=== PATIENT | female | born 1985 | race Caucasian/White ===

== ENCOUNTER → 2016-11-23 | Outpatient (CLI) | payer BC ==
[2016-11-23 11:52] LABS: URINE APPEARANCE CLEAR (CLEAR); URINE BILIRUBIN NEG (NEG); URINE COLOR YELLOW; URINE NITRITE NEG (NEG); URINE PH 6.5 (4.5-7.5); URINE SPECIFIC GRAVITY 1.005 (1.000-1.030); UROBILINOGEN NEG (NEG)
[2016-11-23 12:00] LABS: MANUAL MICROSCOPIC REQUIRED? NO; REVIEW REQ? NO
== END | disposition home or self-care (01) ==
LOC: C.LABSPEC 11:21
PROVIDERS: ATTEND Obstetrics & Gynecology
DX: Z34.90 Encounter for supervision of normal pregnancy, unspecified, unspecified trimester (principal)

== ENCOUNTER → 2016-11-29 | Outpatient (CLI) | payer BC | END | disposition home or self-care (01) | LOC: C.PAPS 10:04 | PROVIDERS: ATTEND Obstetrics & Gynecology | DX: Z34.91 Encounter for supervision of normal pregnancy, unspecified, first trimester (principal) ==

== ENCOUNTER → 2016-11-29 | Outpatient (CLI) | payer BC ==
[2016-11-29 16:38] LABS: BASO % 0.2 %; BASO ABS # 0.02 K/uL (0-0.2); COMPLETE YES; EOS % 1.4 %; HEMATOCRIT 40.4 % (37-47); IG% 0.4 %; LYMPH % 16.7 %; LYMPH ABS # 1.85 K/uL (1.2-3.4); MEAN CELL VOLUME 86.5 fL (80-100); MEAN CORPUSCULAR HGB CONC 34.7 g/dl (32-36); MEAN PLATELET VOLUME 9.7 fL (7.4-10.4); MONO % 6.3 %; PLATELET COUNT 271 K/uL (130-400); RED BLOOD COUNT 4.67 M/uL (4.2-5.4); WHITE BLOOD COUNT 11.07 K/uL (4.8-10.8)
== END | disposition home or self-care (01) ==
LOC: C.LAB1850 15:46
PROVIDERS: ATTEND Obstetrics & Gynecology
DX: Z34.90 Encounter for supervision of normal pregnancy, unspecified, unspecified trimester (principal)

== ENCOUNTER → 2016-11-29 | Outpatient (CLI) | payer BC ==
[2016-12-03 08:40] LABS: CHLAMYDIA TRACH RNA*** NOT DETECTED (NOT DETECTED); GC (NEIS GONORRHOEAE)RNA** NOT DETECTED (NOT DETECTED)
== END | disposition home or self-care (01) ==
LOC: C.LABSPEC 17:52
PROVIDERS: ATTEND Obstetrics & Gynecology
DX: Z34.90 Encounter for supervision of normal pregnancy, unspecified, unspecified trimester (principal)

== ENCOUNTER → 2017-04-24 | Outpatient (CLI) | payer BC ==
[2017-04-24 17:12] LABS: HEMATOCRIT 35.9 % (37-47)
[2017-04-24 17:45] LABS: GTGD 50 Grams
[2017-04-24 18:37] LABS: URINE APPEARANCE CLEAR (CLEAR); URINE BILIRUBIN NEG (NEG); URINE COLOR YELLOW; URINE EPITHELIAL CELL AUTO 0-5 /lpf (0-5); URINE NITRITE NEG (NEG); URINE PH 6.5 (4.5-7.5); UROBILINOGEN NEG (NEG)
[2017-04-24 18:38] LABS: MANUAL MICROSCOPIC REQUIRED? NO; REVIEW REQ? NO
== END | disposition home or self-care (01) ==
LOC: C.LAB1850 15:43
PROVIDERS: ATTEND Obstetrics & Gynecology
DX: Z34.83 Encounter for supervision of other normal pregnancy, third trimester (principal)

== ENCOUNTER → 2017-06-18 | Outpatient (CLI) | payer BC | END | disposition home or self-care (01) | LOC: C.LABSPEC 13:46 | PROVIDERS: ATTEND Obstetrics & Gynecology | DX: Z34.83 Encounter for supervision of other normal pregnancy, third trimester (principal) ==

== ENCOUNTER 2017-07-03 10:37 | Inpatient (IN) | payer BC ==
[~2017-07-03] VITALS: Ht 160 cm; Wt 80.0 kg
[2017-07-03] MEDS ORDERED: LACTATED RINGER'S 1000ML 1,000 ML IV SCH (11:11)
[2017-07-03] MEDS ORDERED: LABETALOL HCL IV 5 MG/ML 20ML IV STA (11:11)
[2017-07-03] MEDS ORDERED: LACTATED RINGER'S 1000ML 1,000 ML IV PRN (11:11)
[2017-07-03] MEDS ORDERED: NO HOME MEDS (11:37)
[2017-07-03 11:40] VITALS: Ht 160 cm; Wt 80.0 kg
[2017-07-03] MEDS ORDERED: LACTATED RINGER'S 1000ML 500 ML IV PRN (11:41)
[2017-07-03 11:43] LABS: HEMATOCRIT 36.5 % (37-47); MEAN CELL VOLUME 86.5 fL (80-100); MEAN CORPUSCULAR HEMOGLOBIN 29.6 pg (25-34); MEAN CORPUSCULAR HGB CONC 34.2 g/dl (32-36); MEAN PLATELET VOLUME 10.1 fL (7.4-10.4); PLATELET COUNT 252 K/uL (130-400); RED BLOOD COUNT 4.22 M/uL (4.2-5.4); WHITE BLOOD COUNT 11.02 K/uL (4.8-10.8)
[2017-07-03] MEDS ORDERED: OXYTOCIN 30 UNITS/500ML NSS IV PRN ×2 (11:45→15:30)
[2017-07-03] MEDS ORDERED: PENICILLIN G POTASSIUM IV 6 MU in DEXTROSE 5% 250ML 250 ML IV ONE (11:45)
[2017-07-03 11:59] LABS: BUN/CREATININE RATIO 10.4 (10-20); CALCIUM 8.8 mg/dl (8.5-10.1); CREATININE 0.64 mg/dl (0.60-1.20); POTASSIUM 3.6 mmol/L (3.5-5.1)
[2017-07-03] MEDS ORDERED: PENICILLIN G POTASSIUM IV 3 MU in DEXTROSE 5% 100ML 100 ML IV PRN (12:00)
[2017-07-03 12:02] LABS: ALB/GLOB RATIO 0.6 (0.9-2)
[2017-07-03 14:11] LABS: CREATININE, URINE 95.8 mg/dl; URINE PROTIEN/CREAT RATIO 0.2 (0-0.2); URINE TOTAL PROTEIN 17.4 mg/dl (0-11.9)
[2017-07-03] MEDS ORDERED: IBUPROFEN 600 MG TAB ONE (15:28)
[2017-07-03] MEDS ORDERED: ACETAMINOPHEN 325 MG TAB PO PRN (15:30)
[2017-07-03] MEDS ORDERED: HYDROCORTISONE ACETATE 25 MG SUPP PR PRN (15:30)
[2017-07-03] MEDS ORDERED: LANOLIN OINT EXT PRN ×2 (15:30)
[2017-07-03] MEDS ORDERED: DIPHTHERIA/TETANUS/PERTUSSIS 0.5 ML SYR/VIAL IM. ONE (15:30)
[2017-07-03] MEDS ORDERED: OXYCODONE/ACETAMINOPHEN 5-325 TAB PO PRN (15:30)
[2017-07-03] MEDS ORDERED: SUPERCREAM 0.870 % 15GM JAR EXT PRN (15:30)
[2017-07-03] MEDS: IBUPROFEN 600 MG TAB PO PRN ×2 (15:31→20:25)
--- NOTE | 2017-07-03 15:51 | Medical Student: [facility] ---
Medical Student Delivery Note Operative Date: 07/03/2017 Preoperative Diagnosis: Intrauterine . Chronic Hypertension with severe features. GBS Positive Post-operative Diagnosis: Intrauterine . Chronic Hypertension with severe features. GBS Positive Procedures performed: Administered Penicillin for GBS Positive, Oxytocin Induction, AROM, , Left Labial laceration repair Physician: Dr. Pascual [employer] Health Counselor: Christopher Christie MS3 Anesthesia: None Estimated Blood Loss: 400mL Lori Lechuga is a 31 year old [id number] at 38-5/7 weeks gestational age with an estimated delivery date of 07/12/2017 who presents for chronic hypertension and induction of labor. She was sent to the L&D unit from the OB clinic due to a blood pressure reading of 160/102. Emmadenied an epidural, was induced with oxytocin at 1145 and AROM occurred at 1430 with clear fluid with bloody show. Shortly thereafter Ms. Lechuga became fully effaced and dilated, and began pushing. After strong effort and pushes from the mother, At 1504 a viable female infant with ELIDIA presentation was born. The baby's head was delivered, followed by the anterior and posterior shoulders, and with a final push the rest of the infant was delivered without difficulty. The baby was placed on the mother's chest for drying/cleaning, and the baby's mouth and nares were suctioned. Cord was doubly clamped and cut by father of baby, and cord blood was obtained. A placenta with a 3 vessel cord was delivered with uterine massage and gentle downward traction. Hemostasis was achieved with Oxytocin and uterine massage. EBL: 400mL. Mother's cervix, anterior vaginal wall, and rectum were examined by Dr. Pascual and were intact. Upon inspection by Dr. Pascual, 2 small labial skin lacerations were observed on both the left and right sides. Only the laceration on the left was determined severe enough to need repair. 1% lidocaine was injected at the laceration site for local anesthesia, and it was repaired with 3 interrupted stitches. Sponge and needle count correct. Apgars for baby were 8 and 9 at 1 and 5 minutes respectively. Mother and baby are doing well and recovering.
--- NOTE | 2017-07-03 16:02 | DELIVERY SUMMARY ---
DATE OF OPERATION: 07/03/2017 DATE OF DELIVERY: 07/03/2017. PREOPERATIVE DIAGNOSES: 1. Intrauterine at 38 weeks. 2. Chronic hypertensive affecting . 3. Elevated blood pressures. POSTOPERATIVE DIAGNOSES: Same PLUS group B strep positive status. PROCEDURES: 1. Penicillin for group B strep status. 2. Pitocin. 3. Amniotomy. 4. Normal spontaneous vaginal delivery. 5. Left labial laceration with repair. SURGEON: Dr. Pascual. ANESTHESIA: Epidural, local infiltration of lidocaine to the labia. ESTIMATED BLOOD LOSS: 400 mL. PROCEDURE: The patient presented labor and delivery from the office at 38+ weeks with a blood pressure of 160/102. Initially the patient's pressure was 160/133. She then got an IV in preparation for giving her antihypertensive medications and that dropped her blood pressure to 120/76 and for the rest of her evaluation her blood pressure were 130s-140s/80s-90s. She had no proteinuria. She had no signs or symptoms of preeclampsia. Given this elevated blood pressure recently and her advanced cervical dilation at 4 cm dilated and gestational age decision was made to proceed with induction. She was agreeable. She was given penicillin for group B strep prophylaxis. She was praveen irregularly at the time of admission and Pitocin augmentation was initiated. She progressed and felt pushy, was found to be 9 cm dilated. It was an hour before her next dose of penicillin. I offered to try to wait versus rupturing bag of water and proceeding with delivery. She desired to rupture bag of water and proceed with delivery. AROM was performed for clear fluid. Over the next contraction the patient felt pushy, she was complete complete and +2-3 station and she pushed with excellent effort to deliver a viable female infant in ELIDIA presentation. There was no nuchal cord and the rest of the infant was immediately delivered via maternal effort. The infant was placed on the maternal abdomen where it was dried and attended. The nose and mouth were bulb suctioned. The cord was clamped and cut at 1 minute of life. Cord blood was obtained. The placenta was delivered spontaneous and intact with a 3-vessel cord. The cervix, sulci, rectum and perineum were examined and found to be intact. Hemostasis with dilute Pitocin and final massage. A left labial laceration was infiltrated with local lidocaine and several interrupted sutures of 4-0 Vicryl were used to reapproximate the edges. Mother and baby tolerated the procedure well. Apgars 8 and 9. I attest to the content of the Intraoperative Record and any orders documented therein. Any exception s are noted below.
[2017-07-03 17:45] VITALS: BP 133/83; PULSE 83; TEMP 36.8
[2017-07-03] MEDS: BENZOCAINE 20% AER SPR 82.5 GM CAN EXT PRN (18:40)
[2017-07-03 19:10] VITALS: BP 137/92; PULSE 87; TEMP 36.6
[2017-07-03] MEDS ORDERED: CALCIUM CARBONATE 500 MG CHEWABLE PO PRN (20:15)
[2017-07-03] MEDS: DOCUSATE SODIUM 100 MG CAP PO SCH (20:24)
[2017-07-03 20:25] VITALS: BP 133/88; PULSE 80
[2017-07-03 21:25] VITALS: BP 141/92; PULSE 88
[2017-07-04] MEDS: IBUPROFEN 600 MG TAB PO PRN ×5 (00:20→20:08)
[2017-07-04 00:30] VITALS: BP 149/94; PULSE 63; PULSE 78; TEMP 36.8; O2SAT 98
[2017-07-04 04:10] VITALS: BP 147/94; PULSE 76; TEMP 36.6; O2SAT 99
--- NOTE | 2017-07-04 06:43 | OB/GYN Progress Note ---
COLOR SEPARATION PHOTOGRAPHER Progress Note Date of Service Jul 04, 2017. Subjective conversation w/ patient, physical exam, chart review, lab review Ambulation: ambulating normally Voiding: no voiding problems Diet Tolerance: Regular Diet Lochia: Small Feeding Type: Breast Feeding Pain: mild pain Review of Systems Constitutional: No fever, No chills Respiratory: No shortness of breath Cardiac: No chest pain Abdomen: No nausea, No vomiting Female : No dysuria Objective Vital Signs Date Time Temp Pulse Resp B/P (MAP) Pulse Ox O2 Delivery O2 Flow Rate FiO2 07/04/17 04:10 36.6 76 18 147/94 (111) 99 Room Air 07/04/17 00:30 98 Room Air 07/04/17 00:30 36.8 78 16 149/94 (112) 98 Room Air 07/03/17 21:25 88 141/92 (108) 07/03/17 20:25 80 133/88 (103) 07/03/17 19:10 36.6 87 18 137/92 (107) Room Air 07/03/17 17:45 36.8 83 18 133/83 (100) Room Air 07/03/17 17:45 Room Air Physical Exam General Appearance: WELL-APPEARING Respiratory/Chest: lungs clear, normal breath sounds Cardiovascular: regular rate, rhythm Abdomen: normal bowel sounds, non tender, soft Fundus: Firm, Relation to Umbilicus (2 FB below) Extremities: non-tender, no pedal edema Laboratory Results Last 24 Hours Test 07/03/17 10:45 07/03/17 11:32 07/04/17 06:26 Urine Random Creatinine 95.8 mg/dl Urine Random Total Protein 17.4 mg/dl Urine Protein/Creatinine Ratio 0.2 White Blood Count 11.02 K/uL Red Blood Count 4.22 M/uL Hemoglobin 12.5 g/dL Hematocrit 36.5 % Mean Corpuscular Volume 86.5 fL Mean Corpuscular Hemoglobin 29.6 pg Mean Corpuscular Hemoglobin Concent 34.2 g/dl RDW Standard Deviation 46.4 fL RDW Coefficient of Variation 14.7 % Platelet Count 252 K/uL Mean Platelet Volume 10.1 fL Sodium Level 137 mmol/L Potassium Level 3.6 mmol/L Chloride Level 105 mmol/L Carbon Dioxide Level 23 mmol/L Anion Gap 9.0 mmol/L Blood Urea Nitrogen 7 mg/dl Creatinine 0.64 mg/dl Est Creatinine Clear Calc Drug Dose 128.7 ml/min Estimated GFR () 138.8 Estimated GFR (Non- 119.7 BUN/Creatinine Ratio 10.4 Random Glucose 83 mg/dl Calcium Level 8.8 mg/dl Total Bilirubin 0.5 mg/dl Aspartate Amino Transf (AST/SGOT) 11 U/L Alanine Aminotransferase (ALT/SGPT) 11 U/L Alkaline Phosphatase 121 U/L Total Protein 7.4 gm/dl Albumin 2.9 gm/dl Globulin 4.5 gm/dl Albumin/Globulin Ratio 0.6 Assessment and Plan Post- Day Number: 1 Continue Routine Care: A/P: This is a 31 y/o female, , s/p [normal vaginal delivery] day 1 complicated by hypertension. She is ambulating and clinically stable. Plan: - Vitals signs are reviewed and WNL (Tmax 36.8) - Last Hgb is 12.5. this AM is pending - Blood type A+, GBS pos, Rubella Immune - Routine care - Encourage ambulation, monitor and control pain with medication as needed, continue with regular diet as tolerated and monitor lochia - Stool softeners and sitz bath recommended - Encourage breast feeding and educate about breast feeding Resident Physician Supervision Note: I interviewed and examined the patient. Discussed with Dr. Dr. Guadarrama and agree with findings and plan as documented in the note. Any exceptions or clarifications are listed here: bps have been better since delivery , diastolics in the 90s, will continue to monitor closely to determine need for antiypertensive. Documented By: Alexandrea Pascual Resident Involvement: Resident Care Provided Care Provided: OB Delivery
[2017-07-04 07:32] LABS: HEMATOCRIT 34.5 % (37-47)
[2017-07-04 07:45] VITALS: BP 136/94; PULSE 83; TEMP 36.7; O2SAT 98
--- NOTE | 2017-07-04 08:02 | Medical Student: [facility] ---
Med Student CONTACT LENS FLASHING PUNCHER Progress Nt Date of Service Jul 04, 2017. Subjective conversation w/ patient Ambulation: ambulating normally Voiding: no voiding problems Passing Gas: Yes Diet Tolerance: Regular Diet Lochia: Small Feeding Type: Breast Feeding Pain: mild, controlled with Motrin Review of Systems Constitutional: No fever, No chills Respiratory: No cough, No shortness of breath Cardiac: No chest pain, No palpitations Abdomen: No pain, No nausea, No vomiting Female : No dysuria denied headache, dizziness, and changes in vision Objective Vital Signs Date Time Temp Pulse Resp B/P (MAP) Pulse Ox O2 Delivery O2 Flow Rate FiO2 07/04/17 04:10 36.6 76 18 147/94 (111) 99 Room Air 07/04/17 00:30 98 Room Air 07/04/17 00:30 36.8 78 16 149/94 (112) 98 Room Air 07/03/17 21:25 88 141/92 (108) 07/03/17 20:25 80 133/88 (103) 07/03/17 19:10 36.6 87 18 137/92 (107) Room Air 07/03/17 17:45 36.8 83 18 133/83 (100) Room Air 07/03/17 17:45 Room Air Physical Exam General Appearance: WELL-APPEARING, WD/WN, NO APPARENT DISTRESS Respiratory/Chest: lungs clear, normal breath sounds Cardiovascular: regular rate, rhythm, no murmur Abdomen: non tender, soft Fundus: Firm, Non-Tender, Relation to Umbilicus (2 finger breadths below umbilicus) Extremities: non-tender, no calf tenderness, + pedal edema (1+) Blood Type: A positive Rubella: Immune BS: positive Predelivery: Hgb 12.5 Hct 36.5 Postdelivery: Hgb 11.4 Hct 34.5 Laboratory Results Last 24 Hours Test 07/03/17 10:45 07/03/17 11:32 07/04/17 06:26 Urine Random Creatinine 95.8 mg/dl Urine Random Total Protein 17.4 mg/dl Urine Protein/Creatinine Ratio 0.2 White Blood Count 11.02 K/uL Red Blood Count 4.22 M/uL Hemoglobin 12.5 g/dL 11.4 g/dL Hematocrit 36.5 % 34.5 % Mean Corpuscular Volume 86.5 fL Mean Corpuscular Hemoglobin 29.6 pg Mean Corpuscular Hemoglobin Concent 34.2 g/dl RDW Standard Deviation 46.4 fL RDW Coefficient of Variation 14.7 % Platelet Count 252 K/uL Mean Platelet Volume 10.1 fL Sodium Level 137 mmol/L Potassium Level 3.6 mmol/L Chloride Level 105 mmol/L Carbon Dioxide Level 23 mmol/L Anion Gap 9.0 mmol/L Blood Urea Nitrogen 7 mg/dl Creatinine 0.64 mg/dl Est Creatinine Clear Calc Drug Dose 128.7 ml/min Estimated GFR () 138.8 Estimated GFR (Non- 119.7 BUN/Creatinine Ratio 10.4 Random Glucose 83 mg/dl Calcium Level 8.8 mg/dl Total Bilirubin 0.5 mg/dl Aspartate Amino Transf (AST/SGOT) 11 U/L Alanine Aminotransferase (ALT/SGPT) 11 U/L Alkaline Phosphatase 121 U/L Total Protein 7.4 gm/dl Albumin 2.9 gm/dl Globulin 4.5 gm/dl Albumin/Globulin Ratio 0.6 Medications Current Inpatient Medications Medications (Trade) Dose Ordered Sig/Alissa Route Start Time Stop Time Status Last Admin Dose Admin Oxytocin (Pitocin IV) 30 units UD PRN IV 07/03/17 15:30 08/02/17 15:29 Benzocaine (Dermoplast Aero Spr) 1 appln PRN PRN EXT 07/03/17 15:30 08/02/17 15:29 07/03/17 18:40 1 APPLN Cocaine HCl (Supercream 0.870% Cr) BID PRN EXT 07/03/17 15:30 07/17/17 15:29 07/03/17 18:40 15 GM Hydrocortisone Acetate (Anusol Hc Supp) 25 mg BID PRN [place] 07/03/17 15:30 08/02/17 15:29 Lanolin (Lanolin Oint) PRN PRN EXT 07/03/17 15:30 08/02/17 15:29 Prenat Multivit/ Green Prize Packer/Iron/Folic Ac ( Vitamin Tab) 1 tab DAILY PO 07/04/17 08:00 08/03/17 07:59 Ibuprofen (Motrin Tab) 600 mg Q4H PRN PO 07/03/17 15:30 08/02/17 15:29 07/04/17 04:10 600 MG Acetaminophen (Tylenol Tab) 650 mg Q6H PRN PO 07/03/17 15:30 08/02/17 15:29 Oxycodone/ Acetaminophen (Percocet 5-325mg Tab) 1 tab Q4H PRN PO 07/03/17 15:30 07/17/17 15:29 Docusate Sodium (coLACE CAP) 100 mg BID PO 07/03/17 20:00 08/02/17 19:59 07/03/17 20:24 100 MG Calcium Carbonate (Tums Chew Tab) 500 mg Q4 PRN PO 07/03/17 20:15 08/02/17 20:14 07/03/17 20:24 500 MG Assessment and Plan Post- Day Number: 1 Continue Routine Care: Assessment: 31 year old Female PPD#1 following induction of labor due to elevated blood pressure, and a normal vaginal delivery. She is asymptomatic of preeclampsia, although her blood pressures have ranged from 133/83-149/94. She is GBS positive and received 1 dose of Penicillin G. She appears clinically stable. Plan: Monitor blood pressures and treat if elevated to 160/100. Continue to monitor bleeding Pain controlled with Motrin Encourage and ambulation Continue routine care
[2017-07-04] MEDS: PRENATAL VITAMIN TAB PO SCH (08:27)
[2017-07-04] MEDS: DOCUSATE SODIUM 100 MG CAP PO SCH ×2 (08:27→20:08)
[2017-07-04 11:00] VITALS: BP 143/90; PULSE 75; TEMP 36.7; O2SAT 97
[2017-07-04 15:25] VITALS: BP 129/90; PULSE 74; TEMP 36.6; O2SAT 99
[2017-07-04 23:15] VITALS: BP 137/91; PULSE 74; TEMP 36.5; O2SAT 98
[2017-07-05 03:40] VITALS: BP 138/99; PULSE 84; TEMP 36.6; O2SAT 97
[2017-07-05] MEDS: IBUPROFEN 600 MG TAB PO PRN ×3 (03:46→13:59)
--- NOTE | 2017-07-05 06:03 | Discharge Instructions ---
Discharge Instructions Date of Service Jul 05, 2017. Admission Reason for Admission: Elevated Blood Pressure Discharge Discharge Diagnosis / Problem: after vaginal delivery Discharge Goals Goal(s): Routine recovery after delivery Medications Continue Dispensed Medications: supercream, dermaplast, tucks, lansinoh Activity Recommendations Activity Limitations: per Instructions/Follow-up section . Instructions / Follow-Up Instructions / Follow-Up ACTIVITY RECOMMENDATIONS: * Gradual return to full activity over the next 2-3 weeks. * No lifting - nothing heavier than baby over the next 2-3 weeks. * Do not engage in vigorous exercise, sexual activity or sports until cleared by your physician. * Do not drive or operate any motorized equipment until cleared by your physician. * You may shower/bathe daily. MEDICATIONS: For discomfort or pain, you may use Acetaminophen (Tylenol), Ibuprofen (Advil), or Naproxen (Aleve) following the package directions. For constipation you may use Colace following the package directions. BREAST CARE: If you are not breast feeding: * Wear a supportive bra 24 hours a day for one to two weeks. * Avoid stimulating your breasts and nipples as much as possible during the first few weeks after delivery. * When taking a shower, have the warm water hit your back, not breasts. * When your breasts feel full, apply ice packs. Usually three to four times a day helps ease the discomfort. * Take a mild pain medication (Tylenol / Motrin) when you are uncomfortable. If breast feeding: * Use breast milk to lubricate nipples. Lansinoh cream may be used for sore nipples. You do not need to remove cream prior to breast feeding. If using a different brand of cream, check the label for directions regarding removal of cream prior to nursing. * Wear a supportive bra. * If having problems with breasts or breast feeding, call a [facility] ascp consultant or your health care provider. EPISIOTOMY CARE: After delivery, if you have an episiotomy (stitches), the following steps will ease discomfort and aid healing. * For the first 24 hours after delivery, place ice packs next to your episiotomy to help reduce swelling. * After the first 24 hour-period, sitz baths, either portable or in the tub, are suggested. A shower with a shower arm sprayed over the episiotomy may be comforting. * Ally care should be done after each voiding and bowel movement. Squirt warm water from a plastic bottle over the perineum (region of the body between the anus and urinary opening) and pat dry. * Use Dermoplast to ease discomfort. Shake container. Ottosen directly over the episiotomy. Place a Tucks on a clean sanitary pad next to your episiotomy. SPECIAL CARE INSTRUCTIONS: When you are discharged from the hospital, it is important for you to follow the instructions listed below: * During the first week at home, you should be able to care for yourself and your baby. In addition, the usual light household activities are encouraged. * Limit your activities to the way you feel. Do not try to clean the house or move furniture. Be sensible. * If you actively engage in sports and have done so up until the time of your delivery, you may resume these activities as soon as you feel able. This may take up to one month or even longer. Use good judgment. * Continue to take your vitamins for at least six weeks after the of your baby. * Your diet need not be limited unless you were on a special diet before your delivery. Breast-feeding mothers need around 2500 calories per day and at least 64-80 ounces of fluid per day (8 to 10 glasses). * You should eat foods from the four major food groups. Crash diets or fad diets are to be avoided. Eating lean meats, fresh fruits and vegetables, low-fat dairy products, high fiber foods and a regular exercise program, will help you get back to your pre- weight without putting your health at risk. * Constipation is sometimes a problem after delivery. Take a mild laxative as needed. If breast feeding, Milk of Magnesia is acceptable to use. You may use a suppository or Fleets enema if no episiotomy. * A daily shower or tub bath is suggested. Be sure to thoroughly and gently dry the perineum. * A bloody vaginal discharge will usually continue until around four weeks post . A small amount of bleeding may continue for as long as six weeks. Vaginal discharge changes from the bright red bleeding after delivery to pink then brownish and finally yellowish-pink before becoming white and disappearing. * Bleeding may increase with activity. Your first period may come in 4-8 weeks. If you are breast feeding, your period may be delayed even longer. * Lydia (sex) can begin whenever both you and your partner feel comfortable and do not have any form of genital infection. It is recommended that you wait at least six weeks for internal and external healing to occur. If you have questions, please talk to your health care practitioner. A condom should be used to prevent infection and . * Foreplay, gentle intercourse and lubrication is very important the first several times to prevent pain. A water-based lubricant such as K-Y jelly or Astroglide may be used. * If you have RH negative blood and your baby is RH positive, you will receive RHOGAM by injection prior to discharge. The nurse will give you a card to keep with you that has the date and place that you received RHOGAM after delivery. * During your care, you had a Rubella screen done to check for the presence of rubella antibodies in your blood. If your test was negative, you will receive a Rubella vaccine prior to discharge. This vaccine may cause a fever, soreness at the injection site and flu-like symptoms. If these symptoms persist, notify your health care practitioner. is not advised for one month after a Rubella vaccine. * Verbalizes understanding of car seat law as reviewed with patient nursing. * Car Seat hand-out given and reviewed with patient by nursing. * Shaken baby information reviewed with patient by nursing. Call you doctor if: * Heavy bleeding (saturating several pads an hour) or passing clots the size of your fist. * A fever >101 degrees F (38.3 degrees C) on two occasions four hours apart and /or chills. * Unusual pain in the pelvic or vaginal areas. * "Baby Blues" lasting longer than two weeks. If you have any questions or concerns, call your health care practitioner at . FOLLOW UP VISIT: * Please call the office at to schedule a 6 week examination. It is important you keep this appointment. It is important for you to make arrangements for either yearly or twice yearly check-ups thereafter. Current Hospital Diet Patient's current hospital diet: Regular OB Diet Discharge Diet Recommended Diet: Regular Diet Pending Studies Studies pending at discharge: no Medical Emergencies . Who to Call and When: Medical Emergencies: If at any time you feel your situation is an emergency, please call 911 immediately. . Non-Emergent Contact Non-Emergency issues call your: [facility] . . "Provider Documentation" section prepared by Valery Guadarrama. . VTE Core Measure Inpt VTE Proph given/why not?: SCD's
--- NOTE | 2017-07-05 06:48 | OB/GYN Progress Note ---
WRITING TUTOR Progress Note Date of Service Jul 05, 2017. Subjective conversation w/ patient, physical exam, chart review, lab review Ambulation: ambulating normally Voiding: no voiding problems Passing Gas: Yes Diet Tolerance: Regular Diet Lochia: Small Feeding Type: Breast Feeding Pain: mild pain Review of Systems Constitutional: No fever, No chills Respiratory: No shortness of breath Cardiac: No chest pain Abdomen: No nausea, No vomiting Female : No dysuria denies BHATTI/dizziness Objective Vital Signs Date Time Temp Pulse Resp B/P (MAP) Pulse Ox O2 Delivery O2 Flow Rate FiO2 07/05/17 03:40 36.6 84 18 138/99 (112) 97 Room Air 07/04/17 23:15 98 Room Air 07/04/17 23:15 36.5 74 18 137/91 (106) 98 Room Air 07/04/17 15:25 36.6 74 18 129/90 (103) 99 Room Air 07/04/17 15:25 Room Air 07/04/17 11:00 36.7 75 18 143/90 (107) 97 Room Air 07/04/17 07:45 98 Room Air 07/04/17 07:45 36.7 83 18 136/94 (108) 98 Room Air Physical Exam General Appearance: WELL-APPEARING Respiratory/Chest: lungs clear, normal breath sounds Cardiovascular: regular rate, rhythm Abdomen: normal bowel sounds, non tender, soft Fundus: Firm, Relation to Umbilicus (3 FB below) Extremities: non-tender, no pedal edema Assessment and Plan Post- Day Number: 2 Continue Routine Care: A/P: This is a 31 y/o female, , s/p [normal vaginal delivery] day 2 complicated by hypertension. She is ambulating and clinically stable. Plan: - Vitals signs are reviewed and WNL (Tmax 36.8) - Last Hgb is 11.4. - Blood type A+, GBS pos, Rubella Immune - No signs of depression. - Routine care - Discussed resting, feeding, pain control, mastitis, control, follow up in 6 weeks and reasons to call sooner, if necessary. - Continue with pain medication as needed, and continue vitamins. - Encourage breast feeding and educate about breast feeding - Patient understands and keen for home. - Plan to discharge home Resident Physician Supervision Note: I was present with Dr. Guadarrama during the history and exam. I discussed the case with the resident and agree with the findings and plan as documented in the note. Any exceptions or clarifications are listed here: [None] Documented By: Evgeny Lopes Resident Involvement: Resident Care Provided Care Provided: OB Delivery
[2017-07-05 07:35] VITALS: BP 133/91; PULSE 69; TEMP 36.6; O2SAT 99
[2017-07-05] MEDS: DOCUSATE SODIUM 100 MG CAP PO SCH (08:22)
[2017-07-05] MEDS: PRENATAL VITAMIN TAB PO SCH (08:23)
[2017-07-05] MEDS: BENZOCAINE 20% AER SPR 82.5 GM CAN EXT PRN (13:58)
[2017-07-05 14:05] VITALS: BP_DIAS 91; PULSE 69; TEMP 36.6
== END 2017-07-05 15:45 | disposition home or self-care (01) | DRG 774 ==
LOC: C.OPB 10:37 → C.LD 10:37 → C.OPB 11:16 → C.OBG 17:48
PROVIDERS: ADMIT Obstetrics & Gynecology; ATTEND Obstetrics & Gynecology
PROC: 10E0XZZ Delivery of Products of Conception, External Approach (ICD-10-PCS; principal; 2017-07-03)
PROC: 0HQ9XZZ Repair Perineum Skin, External Approach (ICD-10-PCS; principal; 2017-07-03)
PROC: 3E033VJ Introduction of Other Hormone into Peripheral Vein, Percutaneous Approach (ICD-10-PCS; principal; 2017-07-03)
DX: O10.92 Unspecified pre-existing hypertension complicating childbirth (principal); O70.0 First degree perineal laceration during delivery; O99.824 Streptococcus B carrier state complicating childbirth; Z3A.38 38 weeks gestation of pregnancy; Z37.0 Single live birth; Z88.1 Allergy status to other antibiotic agents

== ENCOUNTER 2020-10-27 04:46 | Inpatient (IN) ==
[2020-10-27] MEDS ORDERED: OXYTOCIN 30 UNITS/500 ML BAG IV PRN ×2 (05:02→09:10)
[2020-10-27] MEDS ORDERED: LACTATED RINGER'S 1,000 ML IV PRN (05:02)
[2020-10-27] MEDS ORDERED: OXYTOCIN 30 UNITS/500ML NSS ONE (05:07)
[2020-10-27 05:43] LABS: Hematocrit (blood only) 36.5 % (37-47); Mean Corpuscular Hemoglobin 29.6 pg (25-34); Mean Corpuscular Volume 90.1 fL (80-100); Platelet Count 267 K/uL (130-400); RDW Coefficient of Variation 14.5 % (11.5-14.5); RDW Standard Deviation 47.7 fL (36.4-46.3); Red Blood Count 4.05 M/uL (4.2-5.4); White Blood Count 13.96 K/uL (4.8-10.8)
--- NOTE | 2020-10-27 05:56 | Delivery Summary ---
Vaginal Delivery Summary Date of Service October 27, 2020 Vaginal Delivery Summary DIAGNOSES: 1. Truong intrauterine at 38w3d gestation. 2. Spontaneous onset of labor. 3. Group B Streptococcus Neg. PROCEDURE: Spontaneous vaginal delivery without laceration. SURGEON: Reyna Watts MD. RECRUITER SPECIALIST: None. ESTIMATED BLOOD LOSS: 300 mL. COMPLICATIONS: None. PLACENTA: Spontaneous and intact with a 3-vessel cord. DISPOSITION: Stable to labor and delivery. DESCRIPTION: The patient pushed well and brought the head to in DOA position. The infant's head was allowed to deliver with contraction force and no further active pushing, with the perineum protected during this time. The shoulders delivered easily with a maternal pushing effort. There was no nuchal cord. The right shoulder was anterior. The shoulders and body delivered without any difficulty, and the was placed on the maternal abdomen. It was vigorous and moving all extremities, and making respiratory efforts. The cord was doubly clamped by the MD and then cut by the FOB. The placenta delivered spontaneously and was noted to be intact and with a 3VC. The cervix, vagina and perineum were examined and were found to be without defect requiring repair. The fundus was firm and lochia minimal immediately after delivery. [facility] Vaginal Delivery Charge Vaginal Delivery Codes: 28285 global code for the antepartum, delivery, and post-
[2020-10-27] MEDS ORDERED: DIPHTHERIA/TETANUS/PERTUSSIS 0.5 ML SYR/VIAL IM ONE (06:03)
[2020-10-27] MEDS ORDERED: SUPERCREAM 0.870% 15 GM JAR EXT PRN (06:03)
[2020-10-27] MEDS ORDERED: BENZOCAINE 20% AER SPR 82.5 GM CAN EXT PRN (06:03)
[2020-10-27] MEDS ORDERED: HYDROCORTISONE ACETATE 25 MG SUPP PR PRN (06:03)
[2020-10-27] MEDS ORDERED: oxyCODONE/ACETAMINOPHEN 5mg/325mg TAB PO PRN (06:03)
[2020-10-27 06:04] LABS: Mean Corpuscular Hgb Conc 32.9 g/dL (32-36)
[2020-10-27] MEDS ORDERED: IBUPROFEN 600 MG TAB PO ONE (06:07)
[2020-10-27] MEDS: PRENATAL VITAMIN 1 TAB PO SCH (08:39)
[2020-10-27] MEDS: LABETALOL HCL 100 MG TAB PO SCH ×2 (08:39→21:31)
[2020-10-27] MEDS: DOCUSATE SODIUM 100 MG CAP PO SCH ×2 (08:39→21:31)
[2020-10-27] MEDS ORDERED: miSOPROStoL 200 MCG TAB ONE (08:55)
[2020-10-27] MEDS ORDERED: OXYTOCIN 10 UNITS/ML VIAL ONE (08:55)
[2020-10-27] MEDS ORDERED: CARBOPROST TROMETHAMINE 250 MCG/ML AMPUL ONE (08:57)
[2020-10-27] MEDS ORDERED: CARBOPROST TROMETHAMINE 250 MCG/ML AMPUL IM ONE (09:10)
[2020-10-27] MEDS ORDERED: miSOPROStoL 200 MCG TAB PR ONE (09:10)
[2020-10-27] MEDS: ACETAMINOPHEN 325 MG TAB PO PRN ×2 (09:14→19:09)
--- NOTE | 2020-10-27 09:17 | Obstetrical Progress Note ---
Date of Service October 27, 2020 Assessment & Plan (1) Status post vaginal delivery: -Received 1 bag if pit after delivery, 2nd bag of pit started. Hemabate x 1 and cytotec 1000mcg MN were given. Chux pad weighed for EBL of about 200. Fundus firm and bleeding improved following medication administration, will continue to monitor Admission and Anticipated Discharge Date Admission Date: October 27, 2020 Subjective Called to pt room by nursing due to bleeding. Nurses were performing fundal check prior to and large gush of blood was noted through underwear and ice pack and onto chux pad. Denies lightheadedness, dizziness, chest pain, SOB Physical Exam Constitutional: WD/WN, vitals as above Respiratory: normal respiratory effort; no respiratory distress and no labored breathing Gastrointestinal (Abdomen): Percussion/Palpation: abdomen soft; abdomen nontender and no guarding Fundus firm below umbilicus Results & Data ([facility]) Vital Signs (Past 12 Hours) Vital Signs Temp Pulse Resp BP 10/27/20 08:08 99.0 F 86 20 134/75 10/27/20 07:53 78 131/80 10/27/20 07:38 78 18 131/83 10/27/20 07:23 81 129/78 10/27/20 07:08 91 H 20 135/80 10/27/20 06:53 73 132/72 10/27/20 06:38 82 18 134/75 10/27/20 06:23 80 18 134/77 10/27/20 06:08 90 16 131/70 10/27/20 05:53 86 16 132/75 10/27/20 05:39 88 18 118/79 10/27/20 05:13 98.2 F 20 10/27/20 05:06 75 156/92 H PG Care Time/CCT Total # of Minutes Spent Total Time Spent with Patient: Total time spent is greater than 50% in coordination of care (as documented) at patient's floor/unit and/or counseling patient: Coding Level of Care Code None Diagnoses Status post vaginal delivery
--- NOTE | 2020-10-27 09:48 | Obstetrical Progress Note ---
Date of Service October 27, 2020 Assessment & Plan (1) Status post vaginal delivery: -2nd IV started, labs ordered. VSS remain stable, pt continues to deny lightheadedness/dizziness. believe bleeding to intermittent atony rather than residual placenta or tear, plan for exam if further gushes. Pit rate increased, sharmila weighed about 150, total about 350 since delivery. Will continue to monitor Admission and Anticipated Discharge Date Admission Date: October 27, 2020 Subjective Called by nursing with additional gush of blood. Denies s/s anemia Physical Exam Constitutional: WD/WN, vitals as above Respiratory: normal respiratory effort; no respiratory distress and no labored breathing Gastrointestinal (Abdomen): Percussion/Palpation: abdomen soft; abdomen nontender and no guarding Fundus firm at umbilicus Results & Data ([facility]) Vital Signs (Past 12 Hours) Vital Signs Temp Pulse Resp BP 10/27/20 08:08 99.0 F 86 20 134/75 10/27/20 07:53 78 131/80 10/27/20 07:38 78 18 131/83 10/27/20 07:23 81 129/78 10/27/20 07:08 91 H 20 135/80 10/27/20 06:53 73 132/72 10/27/20 06:38 82 18 134/75 10/27/20 06:23 80 18 134/77 10/27/20 06:08 90 16 131/70 10/27/20 05:53 86 16 132/75 10/27/20 05:39 88 18 118/79 10/27/20 05:13 98.2 F 20 10/27/20 05:06 75 156/92 H PG Care Time/CCT Total # of Minutes Spent Total Time Spent with Patient: Total time spent is greater than 50% in coordination of care (as documented) at patient's floor/unit and/or counseling patient: Coding Level of Care Code None Diagnoses Status post vaginal delivery
[2020-10-27 10:21] LABS: Hematocrit (blood only) 34.2 % (37-47); Hemoglobin 11.4 g/dL (12.0-16.0); Mean Corpuscular Hemoglobin 29.5 pg (25-34); Mean Corpuscular Hgb Conc 33.3 g/dL (32-36); Mean Corpuscular Volume 88.4 fL (80-100); Mean Platelet Volume 10.8 fL (7.4-10.4); Platelet Count 248 K/uL (130-400); RDW Coefficient of Variation 14.4 % (11.5-14.5); RDW Standard Deviation 46.7 fL (36.4-46.3); Red Blood Count 3.87 M/uL (4.2-5.4); White Blood Count 15.09 K/uL (4.8-10.8)
[2020-10-27 10:33] LABS: INR 0.9 (0.9-1.1); Partial Thromboplastin Ratio 0.9; Partial Thromboplastin Time 24.7 Seconds (21.0-31.0); Prothrombin Time 9.6 Seconds (9.0-12.0)
[2020-10-27 10:39] LABS: Albumin Level 2.8 gm/dl (3.4-5.0); BUN Creatinine Ratio 11.5 (10-20); Creatinine Clr Calc Pharmacy 117.5 ml/min; Est GFR (African American) 132.6; Est GFR (Non-African American) 114.4
[2020-10-27 10:42] LABS: Albumin Globulin Ratio 0.7 (0.9-2); Bilirubin,Total 0.5 mg/dl (0.2-1); Globulin 3.8 gm/dl (2.5-4.0); Total Protein 6.6 gm/dl (6.4-8.2)
[2020-10-27] MEDS: IBUPROFEN 600 MG TAB PO PRN ×2 (11:52→15:50)
--- NOTE | 2020-10-27 15:00 | Obstetrical Progress Note ---
Date of Service October 27, 2020 Assessment & Plan (1) Status post vaginal delivery: CBC stable and labs wnl from earlier, bleeding improved and pt asymptomatic. Will continue to monitor, plan for repeat CBC this evening Admission and Anticipated Discharge Date Admission Date: October 27, 2020 Subjective Bleeding has been improving since this morning. Had large clot pass when she got up to the bathroom for the first time after this morning but appropriate lochia otherwise. Has been up to the bathroom since then as well w/o further clot passage. Denies lightheadedness/dizzines, chest pain, SOB, palpitations Physical Exam Constitutional: WD/WN, vitals as above Respiratory: normal respiratory effort; no respiratory distress and no labored breathing Gastrointestinal (Abdomen): Percussion/Palpation: abdomen soft; abdomen nontender and no guarding Fundus firm below umbilicus, no tenderness. Lochia wnl and improved Results & Data ([facility]) Vital Signs (Past 12 Hours) Vital Signs Temp Pulse Pulse Resp BP BP Pulse Ox 10/27/20 12:00 98.6 F 90 18 132/82 95 10/27/20 10:42 87 20 143/84 H 10/27/20 10:27 97 H 20 142/88 H 10/27/20 09:42 98.2 F 86 20 141/88 H 10/27/20 08:35 98.2 F 92 H 20 123/84 97 10/27/20 08:08 99.0 F 86 20 134/75 10/27/20 07:53 78 131/80 10/27/20 07:38 78 18 131/83 10/27/20 07:23 81 129/78 10/27/20 07:08 91 H 20 135/80 10/27/20 06:53 73 132/72 10/27/20 06:38 82 18 134/75 10/27/20 06:23 80 18 134/77 10/27/20 06:08 90 16 131/70 10/27/20 05:53 86 16 132/75 10/27/20 05:39 88 18 118/79 10/27/20 05:13 98.2 F 20 10/27/20 05:06 75 156/92 H PG Care Time/CCT Total # of Minutes Spent Total Time Spent with Patient: Total time spent is greater than 50% in coordination of care (as documented) at patient's floor/unit and/or counseling patient: Coding Level of Care Code None Diagnoses Status post vaginal delivery
[2020-10-27 19:30] LABS: Hematocrit (blood only) 30.5 % (37-47); Hemoglobin 10.2 g/dL (12.0-16.0); Mean Corpuscular Hemoglobin 29.5 pg (25-34); Mean Corpuscular Hgb Conc 33.4 g/dL (32-36); Mean Corpuscular Volume 88.2 fL (80-100); Mean Platelet Volume 10.4 fL (7.4-10.4); Platelet Count 211 K/uL (130-400); RDW Coefficient of Variation 14.6 % (11.5-14.5); Red Blood Count 3.46 M/uL (4.2-5.4); White Blood Count 12.89 K/uL (4.8-10.8)
[2020-10-28] MEDS: IBUPROFEN 600 MG TAB PO PRN ×2 (04:41→08:16)
--- NOTE | 2020-10-28 06:08 | Obstetrical Progress Note ---
Date of Service <Emery Rodriguez MD - Last Filed: 10/28/20 07:20> October 28, 2020 Assessment & Plan <Emery Rodriguez MD - Last Filed: 10/28/20 07:20> (1) state: 34 y/o s/p at 38w3d and is PPD1. A pos. Rubella equivocal in 04/2020. - 10/27 vaginal bleeding AM: attending called to bedside for vaginal bleeding. 10/27 AM pit. hemabate x1, cytotec - 10/28 bleeding much improved per patient. lochia rated as small. No symptom com plaints. Hb 12.0 (admission)->11.4->10.2(10/27 PM) ->9.5 (10/28 AM). - meeting milestones - - will recheck H/H at noon and if ok, will dispo home today - BP check in office in 1 wk - 6 wk f/u (2) Chronic hypertension affecting : - vitals reviewed. overnight bps mostly 130s/80s - asymptomatic - continue home labetalol 100 mg PO BID Subjective <Emery Rodriguez MD - Last Filed: 10/28/20 07:20> Ambulation: ambulating normally Voiding: no voiding problems Passing Gas:: Yes Diet Tolerance:: regular diet Lochia:: Moderate (moderate-small now, much improved) Feeding Type:: breast feeding (no issues) Current Pain Level(1-10): 3 (2-3) Bleeding has improved. No complaints. Prefers dispo home today. Review of Systems Denies fever, chills, sweats Denies shortness of breath, chest pain, palpitations. Denies breast pain. Denies dysuria. Denies headache or changes in vision. Denies nausea/vomiting. Denies numbness, tingling, weakness. mood is good no calf pain Physical Exam <Emery Rodriguez MD - Last Filed: 10/28/20 07:20> General: Alert, oriented. No acute distress. Cardiac: Regular rate and rhythm, no murmurs/rubs/gallops. Respiratory: Clear to auscultation bilaterally, no wheezes/rales/rhonchi. No respiratory distress. Abdomen: , soft, nontender. Uterus: Uterine fundus firm, palpable 1cm below umbilicus per attending exam. Lower Extremities: No lower extremity edema or swelling. Puffy appearance, nonpitting. No deep calf pain. Jumana's negative bilaterally. Results & Data ([facility]) <Emery Rodriguez MD - Last Filed: 10/28/20 07:20> Vital Signs (Past 12 Hours) Vital Signs Temp Pulse Resp BP Pulse Ox 10/28/20 04:30 36.8 C 77 16 124/84 98 10/27/20 23:10 36.8 C 76 17 130/85 97 10/27/20 21:30 76 132/87 10/27/20 19:00 36.8 C 80 18 139/85 97 Medications Administered <Fern Dennis MD - Last Filed: 10/28/20 08:41> Co-Signing Physician Notes Resident Physician Supervision Note: I interviewed and examined the patient. Discussed with Dr. Rodriguez and agree with findings and plan as documented in the note. Any exceptions or clarifications are listed here: PP1 s/p c/b bleeding requiring uterotonics. Bleeding has continued to improve, H/H appropriate, pt asymptomatic. VSS, exam wnl. No s/s PET. Will recheck CBC at noon and monitoring of pt this AM, can be d/c'd at noon if remains stable. Pt aware to schedule 1 wk BP check and 6 wk pp appt Documented By: Fern Dennis MD
[2020-10-28 06:27] LABS: Hematocrit (blood only) 29.6 % (37-47); Hemoglobin 9.5 g/dL (12.0-16.0); Mean Corpuscular Hemoglobin 29.1 pg (25-34); Mean Corpuscular Hgb Conc 32.1 g/dL (32-36); Mean Corpuscular Volume 90.8 fL (80-100); Mean Platelet Volume 10.6 fL (7.4-10.4); Platelet Count 201 K/uL (130-400); RDW Coefficient of Variation 14.7 % (11.5-14.5); RDW Standard Deviation 48.5 fL (36.4-46.3); Red Blood Count 3.26 M/uL (4.2-5.4); White Blood Count 11.08 K/uL (4.8-10.8)
[2020-10-28] MEDS: PRENATAL VITAMIN 1 TAB PO SCH (08:15)
[2020-10-28] MEDS: DOCUSATE SODIUM 100 MG CAP PO SCH (08:16)
[2020-10-28] MEDS: LABETALOL HCL 100 MG TAB PO SCH (08:16)
[2020-10-28 12:19] LABS: Hematocrit (blood only) 30.5 % (37-47)
--- NOTE | 2020-10-28 12:50 | Communication Note ---
Date of Service: October 28, 2020 1245pm. - PM H/H reviewed. Hb 9.5->10.0. Hct 29.6%->30.5%. - No symptoms and is feeling fine. Fundal height is 2 cm below umbilicus. - will dispo home this afternoon. instructed patient to take 1 tab of 325mg ferrous sulfate (65 mg elemental iron) every other day in addition to daily . - discharge instructions reviewed with patient - 1 wk bp check - 6 wk f/u
== END 2020-10-28 14:25 | disposition home or self-care (01) | DRG 806 ==
LOC: OPB 04:46 → 4S1 04:47 → 4S2 08:15

== ENCOUNTER 2024-01-24 08:01 | Inpatient (IN) ==
[2024-01-24] MEDS: LACTATED RINGER'S 1,000 ML IV ONE (11:57)
[2024-01-24] MEDS: ACETAMINOPHEN 325 MG TAB PO PRN (13:27)
[2024-01-24] MEDS: ONDANSETRON INJ 2 MG/ML 2 ML VIAL IV PRN (14:00)
[2024-01-24] MEDS: LABETALOL HCL 100 MG TAB PO ONE (15:19)
[2024-01-24] MEDS: CALCIUM CARBONATE 500 MG CHEWABLE TAB PO PRN (17:09)
[2024-01-24] MEDS ORDERED: CALCIUM CARBONATE 500 MG CHEWABLE TAB PO PRN (17:33)
[2024-01-24] MEDS ORDERED: LIDOCAINE 1% LOCAL 20 ML VIAL INFIL PRN (17:33)
[2024-01-24] MEDS ORDERED: OXYTOCIN 30 UNITS/NSS 30 UNITS/500 ML BAG IV PRN ×2 (17:33→21:52)
[2024-01-24] MEDS: LACTATED RINGER'S 1,000 ML IV PRN (17:40)
[2024-01-24] MEDS ORDERED: diphenhydrAMINE 50 MG/ML VIAL IV PRN (18:10)
[2024-01-24] MEDS ORDERED: NALOXONE HCL 1 MG in SODIUM CHLORIDE 0.9% 1,000 ML IV PRN (18:10)
[2024-01-24] MEDS ORDERED: BUPIVACAINE 0.25% PF 30 ML VIAL EPI PRN (18:10)
[2024-01-24] MEDS ORDERED: NALBUPHINE HCL 5 MG in SYRINGE 0 ML IV PRN (18:10)
[2024-01-24] MEDS ORDERED: ePHEDrine sulfate 50 MG/ML AMP IV PRN (18:10)
[2024-01-24] MEDS ORDERED: fentaNYL citrate PF 100 MCG/2 ML VIAL EPI PRN (18:10)
[2024-01-24] MEDS ORDERED: LIDOCAINE 2% MPF LOCAL 5 ML VIAL EPI PRN (18:10)
[2024-01-24] MEDS ORDERED: SODIUM CHLORIDE 0.9% PF INJ 10 ML VIAL EPI PRN (18:10)
[2024-01-24] MEDS ORDERED: ROPIVACAINE 0.5% PF 5 MG/ML 20 ML VIAL EPI PRN (18:10)
[2024-01-24] MEDS ORDERED: NALOXONE HCL 0.4 MG/1 ML VIAL/CARP IV PRN (18:10)
[2024-01-24] MEDS ORDERED: fentANYL 2 MCG/ML BUPIVacaine 0.125%-NSS 100ML BAG EPI PRN (18:10)
--- NOTE | 2024-01-24 18:12 | Anesthesiology Consultation ---
Date of Service January 24, 2024 History Height/Weight Height: 5 ft 2 in Weight: 86.636 kg Allergies Allergy/AdvReac Type Severity Reaction Status Date / Time doxycycline AdvReac Unknown GI upset Verified 12/07/20 11:02 minocycline AdvReac Unknown GI upset Verified 12/07/20 11:02 tetracycline AdvReac Unknown GI upset Verified 12/07/20 11:02 Medications Home Medications Medication Instructions Recorded Confirmed Last Taken breast pump #1 ea 10/04/20 12/07/20 Unknown labetalol 100 mg tablet 100 mg PO TID 10/09/20 01/24/24 01/24/24 06:30 azithromycin 250 mg tablet 250 mg PO DAILY 01/24/24 01/24/24 01/23/24 18:30 (Zithromax Z-Jaleel) famotidine 20 mg tablet 20 mg PO DAILY 01/24/24 01/24/24 01/23/24 13:00 vit no.95-ferrous 1 tab PO DAILY 01/24/24 01/24/24 01/22/24 09:00 fumarate 28 mg-folic acid 800 mcg tablet () Active Medications Generic Name Dose Route Start Last Admin Trade Name Freq PRN Reason Stop Dose Admin Calcium Carbonate 1,500 mg 01/24/24 16:56 01/24/24 17:09 Calcium Carbonate 500 Mg Chewable Tab PO 02/23/24 16:55 1,500 mg Q6 PRN Administration Indigestion Lactated Ringer's 1,000 mls @ 125 mls/hr 01/24/24 17:33 01/24/24 17:40 Lr IV 01/26/24 17:32 999 mls/hr .Q8H PRN Administration L&D Protocol Protocol Ondansetron HCl 4 mg 01/24/24 13:53 01/24/24 14:00 Ondansetron Inj 2 Mg/Ml 2 Ml Vial IV 02/23/24 13:52 4 mg Q6H PRN Administration Nausea And Vomiting Past Medical History Medical History Hypertension dx in 2017 Supervision of high risk , antepartum Hypertension affecting Supervision of normal intrauterine in multigravida Encounter for anatomic survey Spontaneous in first trimester Group B Streptococcus carrier, antepartum induced hypertension Hx of varicella Hx of migraines Severe hypertension affecting in third trimester with 38 completed weeks gestation Exercise / Class Metabolic Activity II 4-5 Yardwork/Stairs/Walk up hill Past Family History Family History Mother Hypertension Myocardial infarction Melanoma Grandmother Hypertension Past Surgical History Surgical History Status post vaginal delivery History of strabismus surgery [place] teeth removed Social History Smoking Status: Never smoker Do You Dip or Chew Tobacco: No Hx Alcohol Use: No Hx Substance Use: No substance use type: does not use Physical Exam Vital Signs Last Vital Signs Temp 36.9 C 01/24/24 15:01 Pulse 76 01/24/24 15:02 Resp 18 01/24/24 15:01 BP 135/84 01/24/24 15:02
[2024-01-24 18:14] LABS: Hematocrit (blood only) 31.5 % (37.0-47.0); Hemoglobin 10.5 g/dl (12.0-16.0); Mean Corpuscular Hemoglobin 29.5 pg (25.0-34.0); Mean Corpuscular Hgb Conc 33.3 g/dL (32.0-36.0); Mean Corpuscular Volume 88.5 fL (80.0-100.0); Platelet Count 207 K/uL (130-400); RDW Coefficient of Variation 14.6 % (11.5-14.5); RDW Standard Deviation 47.2 fL (36.4-46.3); Red Blood Count 3.56 M/uL (4.20-5.40); White Blood Count 9.55 K/ul (4.8-10.8)
--- NOTE | 2024-01-24 18:37 | Anesthesiology Consultation ---
Date of Service January 24, 2024 Assessment & Plan (1) Encounter for pre-operative examination: Chart Review Chart Review: Patient NOT seen in Pre Admission Testing and Acceptable Risk for Labor Epidural Consults Requested none History Height/Weight Height: 5 ft 2 in Weight: 86.636 kg Allergies Allergy/AdvReac Type Severity Reaction Status Date / Time doxycycline AdvReac Unknown GI upset Verified 12/07/20 11:02 minocycline AdvReac Unknown GI upset Verified 12/07/20 11:02 tetracycline AdvReac Unknown GI upset Verified 12/07/20 11:02 Medications Home Medications Medication Instructions Recorded Confirmed Last Taken breast pump #1 ea 10/04/20 12/07/20 Unknown labetalol 100 mg tablet 100 mg PO TID 10/09/20 01/24/24 01/24/24 06:30 azithromycin 250 mg tablet 250 mg PO DAILY 01/24/24 01/24/24 01/23/24 18:30 (Zithromax Z-Jaleel) famotidine 20 mg tablet 20 mg PO DAILY 01/24/24 01/24/24 01/23/24 13:00 vit no.95-ferrous 1 tab PO DAILY 01/24/24 01/24/24 01/22/24 09:00 fumarate 28 mg-folic acid 800 mcg tablet () Active Medications Generic Name Dose Route Start Last Admin Trade Name Freq PRN Reason Stop Dose Admin Calcium Carbonate 1,500 mg 01/24/24 16:56 01/24/24 17:09 Calcium Carbonate 500 Mg Chewable Tab PO 02/23/24 16:55 1,500 mg Q6 PRN Administration Indigestion Lactated Ringer's 1,000 mls @ 125 mls/hr 01/24/24 17:33 01/24/24 17:40 Lr IV 01/26/24 17:32 999 mls/hr .Q8H PRN Administration L&D Protocol Protocol Ondansetron HCl 4 mg 01/24/24 13:53 01/24/24 14:00 Ondansetron Inj 2 Mg/Ml 2 Ml Vial IV 02/23/24 13:52 4 mg Q6H PRN Administration Nausea And Vomiting Past Medical History Medical History (Updated 01/24/24 @ 18:37 by Osiel John MD) Encounter for pre-operative examination Hypertension dx in 2017 Supervision of high risk , antepartum Hypertension affecting Supervision of normal intrauterine in multigravida Encounter for anatomic survey Spontaneous in first trimester Group B Streptococcus carrier, antepartum induced hypertension Hx of varicella Hx of migraines Severe hypertension affecting in third trimester with 38 completed weeks gestation Exercise / Class Metabolic Activity II 4-5 Yardwork/Stairs/Walk up hill Past Family History Family History Mother Hypertension Myocardial infarction [place] Grandmother Hypertension Past Surgical History Surgical History Status post vaginal delivery History of strabismus surgery [place] teeth removed Past Anesthesia History No Hx of Anesthesia Complications and No Family Hx of Anesthesia Complications Social History Smoking Status: Never smoker Do You Dip or Chew Tobacco: No Hx Alcohol Use: No Hx Substance Use: No substance use type: does not use Physical Exam Vital Signs Last Vital Signs Temp 36.9 C 01/24/24 15:01 Pulse 77 01/24/24 18:34 Resp 18 01/24/24 15:01 BP 129/74 01/24/24 18:34 Pulse Ox 94 01/24/24 18:32 Testing Laboratory Results 01/24/24 17:44
[2024-01-24] MEDS: BUPIVACAINE 0.25% PF 30 ML VIAL ONE (18:38)
[2024-01-24] MEDS: fentaNYL citrate PF 100 MCG/2 ML VIAL ONE (18:38)
[2024-01-24] MEDS: LIDOCAINE 2%/EPINEPHRINE 1:200,000 20 ML PF ONE (18:38)
[2024-01-24] MEDS: BUPIVACAINE 0.25% PF 30 ML VIAL EPI STA (18:40)
[2024-01-24] MEDS: fentaNYL citrate PF 100 MCG/2 ML VIAL EPI STA (18:40)
[2024-01-24] MEDS: fentANYL 2 MCG/ML BUPIVacaine 0.125%-NSS 100ML BAG ONE (18:42)
[2024-01-24] MEDS: SODIUM CHLORIDE 0.9% PF INJ 10 ML VIAL ONE (18:54)
[2024-01-24] MEDS: SODIUM CHLORIDE 0.9% PF INJ 10 ML VIAL EPI STA (18:54)
[2024-01-24] MEDS: LIDOCAINE 2%/EPINEPHRINE 1:200,000 20 ML PF EPI STA (18:54)
[2024-01-24] MEDS: OXYTOCIN 30 UNITS/NSS 30 UNITS/500 ML BAG IV PRN (18:58)
[2024-01-24] MEDS: LACTATED RINGER'S 1,000 ML IV SCH (20:05)
[2024-01-24] MEDS: ePHEDrine sulfate 50 MG/ML AMP ONE (21:06)
[2024-01-24] MEDS ORDERED: oxyCODONE/ACETAMINOPHEN 5mg/325mg TAB PO PRN (21:52)
[2024-01-24] MEDS ORDERED: ACETAMINOPHEN W/CODEINE #3 1 TAB PO PRN (21:52)
[2024-01-24] MEDS ORDERED: HYDROCORTISONE ACETATE 25 MG SUPP PR PRN (21:52)
--- NOTE | 2024-01-24 21:57 | Delivery Summary ---
Vaginal Delivery Summary Date of Service January 24, 2024 Vaginal Delivery Summary Patient's been followed in our office for care and delivery. Patient's been well dated with a first trimester ultrasound. has been complicated by hypertension requiring labetalol 100 mg twice a day for control. Patient was admitted in labor at 37 weeks and 3 days. She had not slept for 2 days. She was observed for over 8 hours and showed cervical change with a bloody show. She was then given epidural for pain control at the patient's request. Then augmented with IV Pitocin. She quickly developed a good regular labor pattern. And delivered a live female infant via left occiput posterior position with a truncal cord x 1. Infant was delivered with the cord intact. Cord was allowed to pulse for 1 full minute. Cord was then clamped cut by the father. Cord blood was taken. With IV Pitocin running the placenta was removed intact and sent for exam. Inspection of the perineum revealed no lacerations. Hemostasis was good. Blood loss to be determined by the nurses.
[2024-01-24] MEDS ORDERED: Nursing to Pharmacy Communication SCH (22:13)
[2024-01-24] MEDS: ACETAMINOPHEN 500 MG TAB PO PRN (22:19)
[2024-01-24] MEDS: FAMOTIDINE 20 MG TAB PO SCH (22:31)
[2024-01-24] MEDS: LABETALOL HCL 100 MG TAB PO SCH (23:46)
[2024-01-25] MEDS: BENZOCAINE 20% SPRY 85 APPLN/85 GM CAN EXT PRN (00:16)
[2024-01-25] MEDS: IBUPROFEN 600 MG TAB PO PRN (03:08)
[2024-01-25 06:59] LABS: Hematocrit (blood only) 30.3 % (37.0-47.0); Hemoglobin 9.8 g/dl (12.0-16.0); Mean Corpuscular Hgb Conc 32.3 g/dL (32.0-36.0); Mean Corpuscular Volume 89.6 fL (80.0-100.0); Mean Platelet Volume 10.1 fL (9.4-12.4); Platelet Count 197 K/uL (130-400); RDW Coefficient of Variation 14.7 % (11.5-14.5); RDW Standard Deviation 47.9 fL (36.4-46.3); Red Blood Count 3.38 M/uL (4.20-5.40); White Blood Count 12.47 K/ul (4.8-10.8)
--- NOTE | 2024-01-25 08:19 | Anesthesia Procedure Note ---
Date of Service January 25, 2024 Anesthesia Post Epidural Note Vital Signs Vital Signs: Temp Pulse Resp BP Pulse Ox O2 Del Method 36.7 C 65 18 109/73 94 Room Air 01/25/24 02:50 01/25/24 02:50 01/25/24 02:50 01/25/24 02:50 01/25/24 02:50 01/25/24 02:50 Pain Intensity Right Groin: Pain Intensity: 9 Vaginal: Pain Intensity: 2 Back: Pain Intensity: 3 Notes Mental Status: alert / awake / arousable and participated in evaluation Nausea / Vomiting: adequately controlled Pain: adequately controlled Airway Patency, RR, SpO2: stable & adequate BP & HR: stable & adequate Hydration State: stable & adequate Neuraxial Anesthesia: was administered and sensory block is resolving Anesthetic Complications: no major complications apparent and Pt Satisfied with anesthetic care Epidural: Removed without complications and With tip intact
[2024-01-25] MEDS: PRENATAL VITAMIN 1 TAB PO SCH (08:45)
[2024-01-25] MEDS: DOCUSATE SODIUM 100 MG CAP PO SCH (08:45)
[2024-01-25] MEDS ORDERED: LABETALOL HCL 100 MG TAB PO SCH (09:00)
--- NOTE | 2024-01-25 10:25 | Obstetrical Progress Note ---
Date of Service January 25, 2024 Assessment & Plan Admission and Anticipated Discharge Date Admission Date: January 24, 2024 Subjective abdomen soft and non tender no calf tenderness ambulating well vaginal bleeding scant hgb 9.8 Results & Data Vital Signs (Past 12 Hours) Vital Signs Temp Pulse Pulse Resp BP BP Pulse Ox 01/25/24 02:50 36.7 C 65 18 109/73 94 01/24/24 23:45 36.8 C 80 18 112/60 96 01/24/24 23:45 36.8 C 18 01/24/24 23:45 80 01/24/24 23:45 112/60 01/24/24 23:33 81 01/24/24 23:33 111/58 L 01/24/24 23:18 82 01/24/24 23:18 115/61 01/24/24 23:15 36.8 C 18 01/24/24 23:03 73 01/24/24 23:03 129/76 01/24/24 22:48 80 01/24/24 22:48 133/79 01/24/24 22:45 36.8 C 18 01/24/24 22:33 72 01/24/24 22:33 132/73 01/24/24 22:30 36.8 C 18 O2 Del Method 01/25/24 02:50 Room Air 01/24/24 23:45 Room Air 01/24/24 23:45 01/24/24 23:45 01/24/24 23:45 01/24/24 23:33 01/24/24 23:33 01/24/24 23:18 01/24/24 23:18 01/24/24 23:15 01/24/24 23:03 01/24/24 23:03 01/24/24 22:48 01/24/24 22:48 01/24/24 22:45 01/24/24 22:33 01/24/24 22:33 01/24/24 22:30
[2024-01-25] MEDS: ACETAMINOPHEN 325 MG TAB PO PRN (12:18)
[2024-01-25] MEDS: bisacodyL 5 MG TABEC PO SCH (20:10)
[2024-01-25] MEDS: MEASLES, MUMPS & RUBELLA VIRUS VACCINE (MMR) 0.5ML VIAL SQ ONE (20:13)
[2024-01-25] MEDS: DIPHTHER/TETAN/PERTUS Vaccine (Tdap, Adol/Adult) 0.5mL IM ONE (21:38)
[2024-01-26] MEDS ORDERED: bisacodyL 10 MG SUPP PR PRN
== END 2024-01-25 22:16 | disposition home or self-care (01) | DRG 807 ==
LOC: OPB 08:01 → 4S1 08:03 → 4E2 01-25 00:10